=== PATIENT | male | born 2000 | race Caucasian/White ===

== ENCOUNTER → 2020-03-08 | Outpatient (CLI) | payer BC, OTHER ==
[~2020-03-08] MED LIST: CEPH250A PO; CLAR250SU PO; MOTRIN; Percocet 5-3251 EACH PO
== END | disposition home or self-care (01) ==
LOC: LAB SHORT 11:23 → LAB EV 11:23
DX: J06.9 Acute upper respiratory infection, unspecified (principal); Z20.828 Contact with and (suspected) exposure to other viral communicable diseases
CPT/HCPCS: U0003